=== PATIENT | female | born 1945 | race Caucasian/White ===

== ENCOUNTER 2019-11-30 12:41 | Emergency (ER) | payer OTHER ==
[2019-11-30 13:04] VITALS: BP 104/51; PULSE 92; TEMP 100.1; BMI 20.8
--- NOTE | 2019-11-30 13:50 | PDOC ---
History of Present Illness - General Chief Complaint: Cold Symptoms Stated Complaint: Cold Symptoms Time Seen by Provider: 11/30/19 13:49 History Source: Patient - History of Present Illness Initial Comments: 11/30/19 14:24 Chief complaint: Cough Patient is 74-year-old female with history of hypertension, former smoker for many years ago with vague complaint of cough, not feeling well. Denies fever although patient was febrile in triage. Patient denies any chest pain or shortness of breath. Patient does not appear acutely ill. GENERAL/CONSTITUTIONAL: No fever, weakness. dizziness HEAD, EYES, EARS, NOSE AND THROAT: No change in vision. No ear pain or discharge. No sore throat. CARDIOVASCULAR: No chest pain RESPIRATORY: No shortness of breath +cough GASTROINTESTINAL: No pain, nausea, vomiting, diarrhea or constipation GENITOURINARY: No dysuria MUSCULOSKELETAL: No neck or back pain SKIN: No rash NEUROLOGIC: No headache, vertigo, loss of consciousness, or loss of sensation. GENERAL: The patient is awake, alert, and fully oriented, in no acute distress. HEAD: Normal with no signs of trauma. EYES: Pupils equal, round and reactive to light, sclera anicteric, conjunctiva clear. ENT: pharynx: no erythema, no exudate, uvula midline NECK: supple CHEST: clear, decreased, nontender, rr ABD: soft, nontender BACK: no tenderness or signs of injury EXTREMITIES: Normal range of motion, no edema. NEUROLOGICAL: Normal speech, normal gait. SKIN: Warm, Dry Past History - Past Medical History Allergies/Adverse Reactions: Allergies Allergy/AdvReac Type Severity Reaction Status Date / Time No Known Drug Allergies Allergy Verified 11/30/19 12:59 Home Medications: Ambulatory Orders Olmesartan/Hydrochlorothiazide [Benicar Hct 20-12.5 mg Tablet] 1 each PO DAILY 12/17/14 Rosuvastatin Calcium [Crestor] 5 mg PO DAILY 12/17/14 Meloxicam [Mobic] 7.5 mg PO DAILY 01/24/15 COPD: No HTN: Yes Hypercholesterolemia: Yes - Surgical History Abdominal Surgery: Yes (LEFT INGUINAL HERNIA REPAIR) Appendectomy: Yes - Psycho Social/Smoking Cessation Hx Smoking History: Current some day smoker Have you smoked in the past 12 months: Yes Number of Cigarettes Smoked Daily: 4 Information on smoking cessation initiated: No Hx Alcohol Use: No Drug/Substance Use Hx: No Substance Use Type: None *Physical Exam - Vital Signs Last Vital Signs Temp Pulse Resp BP Pulse Ox 100.1 F H 92 H 20 104/51 L 93 L 11/30/19 13:01 11/30/19 13:01 11/30/19 13:01 11/30/19 13:01 11/30/19 13:01 ED Treatment Course - LABORATORY CBC & Chemistry Diagram: 11/30/19 15:00 11/30/19 15:00 Medical Decision Making - Medical Decision Making 11/30/19 14:26 74-year-old female with history of elevated blood pressure, who is had 3 days of not feeling well, cough. No shortness of breath or chest pain.. Patient has low-grade fever, slightly tachycardic, no signs of respiratory distress, patient able to speak in full sentences. Patient's pulse ox is a little on the low side, it was repeated and remained there. Patient will get chest x-ray. 3 days of symptoms so out of the window for Tamiflu. Will give DuoNeb and reassess. Chest x-ray reviewed by me, no gross signs of failure or infiltrate. awaiting radiologist read. Patient's pulse ox remains 93. Will order labs, EKG, give steroids, signed out to [facility] for further evaluation. Flu is pending 11/30/19 17:47 Discharge - Discharge Information Problems reviewed: Yes Clinical Impression/Diagnosis: URI (upper respiratory infection) Qualifiers: URI type: unspecified URI Qualified Code(s): J06.9 - Acute upper respiratory infection, unspecified Condition: Stable Disposition: HOME - Follow up/Referral Referrals: Bhanu Crabtree MD, MD [Staff Physician] - - Patient Discharge Instructions Additional Instructions: Call to schedule an appointment with the placement assistant within 1 week Return to ER if fever, chills, shortness of breath, chest pain or any worsening symptom - Post Discharge Activity
[2019-11-30] MEDS ORDERED: ACETAMINOPHEN 325 MG TABLET (FP) PO ONE (14:13)
[2019-11-30] MEDS ORDERED: ALBUTEROL SO4 2.5/IPRATROPIUM 0.5 INH SOL 3 ML VIAL.NEB. NEB ONE ×3 (14:13→15:01)
[2019-11-30] MEDS ORDERED: ACETAMINOPHEN 325 MG TABLET (FP) ONE (14:15)
[2019-11-30] MEDS ORDERED: methylPREDNISolone NA SUCC 125 MG/2 ML VIAL IVPUSH ONE (14:59)
[2019-11-30] MEDS ORDERED: methylPREDNISolone NA SUCC 125 MG/2 ML VIAL ONE (15:25)
[2019-11-30 15:43] LABS: BASO % 0.2 % (0-2.0); HEMATOCRIT 44.1 % (32.4-45.2); HEMOGLOBIN 14.7 GM/dL (10.7-15.3); LYMPH % 15.7 % (8-40); MCH 26.1 pg (25.7-33.7); MCHC 33.3 g/dl (32.0-36.0); MEAN CELL VOLUME 78.4 fl (80-96); MEAN PLT VOLUME 8.7 fl (7.5-11.1); MONO % 11.7 % (3.8-10.2); NEUT % 72.4 % (42.8-82.8); PLATELET COUNT 169 K/MM3 (134-434); RBC 5.63 M/mm3 (3.60-5.2); RDW 14.6 % (11.6-15.6); WHITE BLOOD COUNT 7.1 K/mm3 (4.0-10.0)
--- NOTE | 2019-11-30 15:47 | PDOC ---
*Physical Exam - Vital Signs Last Vital Signs Temp Pulse Resp BP Pulse Ox 100.1 F H 92 H 20 104/51 L 93 L 11/30/19 13:01 11/30/19 13:01 11/30/19 13:01 11/30/19 13:01 11/30/19 13:01 - Physical Exam General Appearance: Yes: Nourished, Appropriately Dressed. No: Apparent Distress HEENT: positive: Normal ENT Inspection Neck: positive: Supple Respiratory/Chest: negative: Respiratory Distress, Accessory Muscle Use Cardiovascular: positive: Regular Rhythm, Regular Rate Musculoskeletal: positive: Normal Inspection Extremity: positive: Normal Inspection Integumentary: positive: Normal Color Neurologic: positive: Fully Oriented, Alert, Normal Response ED Treatment Course - LABORATORY CBC & Chemistry Diagram: 11/30/19 15:00 11/30/19 15:00 - Medications Given in the ED: ED Medications Discontinued Medications Generic Name Dose Route Start Last Admin Trade Name Freq PRN Reason Stop Dose Admin Acetaminophen 650 mg 11/30/19 14:13 11/30/19 14:14 Tylenol - PO 11/30/19 14:14 650 mg ONCE ONE Administration Albuterol/Ipratropium 1 amp 11/30/19 14:13 11/30/19 14:14 Duoneb - NEB 11/30/19 14:14 1 amp ONCE ONE Administration Albuterol/Ipratropium 1 amp 11/30/19 14:59 11/30/19 15:01 Duoneb - NEB 11/30/19 15:00 1 amp ONCE ONE Administration Methylprednisolone Sodium Succinate 125 mg 11/30/19 14:59 11/30/19 15:28 Solu-Medrol - IVPUSH 11/30/19 15:00 125 mg ONCE ONE Administration Medical Decision Making - Medical Decision Making 11/30/19 15:44 I assumed care of this 74-year-old female with history of hypertension and remote history of smoking presented with complaint of vague symptoms of cough and feeling sick with malaise and found to have low temp fever in triage and low O2 sat. Patient given a dose of DuoNeb in fast track with no improvement in O2 sat. Patient in no acute respiratory distress and report no history of COPD. Patient with no wheezing. Chest x-ray done from fast track shows no acute infiltrate or pneumonia. Patient pending labs and flu result. Steroids ordered from fast track to help with O2 sat. Treat based on lab results 11/30/19 16:01 Patient pending labs results. Patient asymptomatic and signed out to AD[facility] Luna for f/u care Discharge - Discharge Information Problems reviewed: Yes Clinical Impression/Diagnosis: URI (upper respiratory infection) Qualifiers: URI type: unspecified URI Qualified Code(s): J06.9 - Acute upper respiratory infection, unspecified Condition: Stable Disposition: HOME - Admission No - Follow up/Referral Referrals: Bhanu Crabtree MD, MD [Staff Physician] - - Patient Discharge Instructions Additional Instructions: Call to schedule an appointment with the prior authorization nurse within 1 week Return to ER if fever, chills, shortness of breath, chest pain or any worsening symptom - Post Discharge Activity
[2019-11-30 16:12] LABS: ALBUMIN 3.2 g/dl (3.4-5.0); ALK PHOS 69 U/L (45-117); ANION GAP 9 MMOL/L (8-16); BILIRUBIN,TOTAL 0.4 mg/dL (0.2-1); BLOOD UREA NITROGEN 28.9 mg/dL (7-18); CALCIUM 8.6 mg/dL (8.5-10.1); CHLORIDE 97 mmol/L (98-107); CO2 26 mmol/L (21-32); CREATININE 1.2 mg/dL (0.55-1.3); GLUCOSE,RANDOM 138 mg/dL (74-106); POTASSIUM 3.3 mmol/L (3.5-5.1); SGOT/AST 78 U/L (15-37); SGPT/ALT 49 U/L (13-61); SODIUM 133 mmol/L (136-145)
--- NOTE | 2019-11-30 16:34 | PDOC ---
*Physical Exam - Vital Signs Last Vital Signs Temp Pulse Resp BP Pulse Ox 100.1 F H 92 H 20 104/51 L 93 L 11/30/19 13:01 11/30/19 13:01 11/30/19 13:01 11/30/19 13:01 11/30/19 13:01 ED Treatment Course - LABORATORY CBC & Chemistry Diagram: 11/30/19 15:00 11/30/19 15:00 - ADDITIONAL ORDERS Additional order review: Laboratory Results 11/30/19 11/30/19 15:00 15:00 Sodium 133 L Potassium 3.3 L Chloride 97 L Carbon Dioxide 26 Anion Gap 9 BUN 28.9 H Creatinine 1.2 Est GFR (CKD-EPI)AfAm 51.20 Est GFR (CKD-EPI)NonAf 44.17 Random Glucose 138 H Lactic Acid 2.0 Calcium 8.6 Total Bilirubin 0.4 AST 78 H ALT 49 Alkaline Phosphatase 69 Creatine Kinase 137 Troponin I < 0.02 Total Protein 7.0 Albumin 3.2 L 11/30/19 15:00 RBC 5.63 H MCV 78.4 L MCHC 33.3 RDW 14.6 MPV 8.7 Neutrophils % 72.4 Lymphocytes % 15.7 D Monocytes % 11.7 H D Eosinophils % 0.0 D Basophils % 0.2 - Medications Given in the ED: ED Medications Discontinued Medications Generic Name Dose Route Start Last Admin Trade Name Jesesnia PRN Reason Stop Dose Admin Acetaminophen 650 mg 11/30/19 14:13 11/30/19 14:14 Tylenol - PO 11/30/19 14:14 650 mg ONCE ONE Administration Albuterol/Ipratropium 1 amp 11/30/19 14:13 11/30/19 14:14 Duoneb - NEB 11/30/19 14:14 1 amp ONCE ONE Administration Albuterol/Ipratropium 1 amp 11/30/19 14:59 11/30/19 15:01 Duoneb - NEB 11/30/19 15:00 1 amp ONCE ONE Administration Methylprednisolone Sodium Succinate 125 mg 11/30/19 14:59 11/30/19 15:28 Solu-Medrol - IVPUSH 11/30/19 15:00 125 mg ONCE ONE Administration ED Progress Note - Progress Note Progress Note: 11/30/19 16:32 Signed out by ADAM Alejandre 74-year-old female with history of hypertension, asthma quit tobacco smoke 2 months ago after smoking x22 years presented complaining of dry cough and feeling generally unwell for a few days. Well-appearing, speaking full sentences Feels better after nebs and steroids Influenza swab negative X-ray negative Labs reviewed Patient understands that she should follow-up with a plate glass polisher given her O2 sat remains at 93% However patient does not desat when walking nor does she feel short of breath Strict return precautions discussed Discharge - Discharge Information Problems reviewed: Yes Clinical Impression/Diagnosis: URI (upper respiratory infection) Qualifiers: URI type: unspecified URI Qualified Code(s): J06.9 - Acute upper respiratory infection, unspecified Condition: Stable Disposition: HOME - Admission No - Follow up/Referral Referrals: Bhanu Crabtree MD, MD [Staff Physician] - - Patient Discharge Instructions Additional Instructions: Call to schedule an appointment with the plate glass polisher within 1 week Return to ER if fever, chills, shortness of breath, chest pain or any worsening symptom - Post Discharge Activity
== END 2019-11-30 16:27 | disposition home or self-care (01) ==
LOC: JER 12:41 → JERFT 12:41 → JER 16:27
PROC: 3E0333Z Introduction of Anti-inflammatory into Peripheral Vein, Percutaneous Approach (ICD-10-PCS; principal; 2019-11-30)
PROC: 3E0F7GC Introduction of Other Therapeutic Substance into Respiratory Tract, Via Natural or Artificial Opening (ICD-10-PCS; 2019-11-30)
PROC: 3E0F7GC Introduction of Other Therapeutic Substance into Respiratory Tract, Via Natural or Artificial Opening (ICD-10-PCS; 2019-11-30)
DX: J06.9 Acute upper respiratory infection, unspecified (principal); I10 Essential (primary) hypertension; E78.00 Pure hypercholesterolemia, unspecified
CPT/HCPCS: 36415; 71046-TC-FY; 80053; 82550; 83605; 84484; 85025; 87040; 87804; 99285-25